=== PATIENT | male | born 1995 | race Caucasian/White ===

== ENCOUNTER 2017-04-09 09:40 | Outpatient (CLI) | payer OTHER | END 2017-04-09 09:49 | disposition home or self-care (01) | LOC: RAD 09:40 | DX: M54.5 Low back pain (principal) ==

== ENCOUNTER 2017-05-02 08:30 | Outpatient (CLI) | payer OTHER | END 2017-05-02 14:08 | disposition home or self-care (01) | LOC: MRI 08:30 | DX: M51.17 Intervertebral disc disorders with radiculopathy, lumbosacral region (principal) | CPT/HCPCS: 72148 ==